=== PATIENT | male | born 1980 | race Caucasian/White ===

== ENCOUNTER 2017-12-15 12:12 | Emergency (ER) | payer SELFPAY ==
[~2017-12-15] VITALS: Ht 185.4 cm; Wt 120.2 kg
[2017-12-15] MEDS ORDERED: SILVER SULFADIAZINE 1% CREAM 25 GM TUBE TP ONE (12:31)
[2017-12-15] MEDS ORDERED: TDAP DIPH,PERTUSS,TET VAC/PF 0.5 ML DISP.SYRIN IM ONE ×2 (12:35→12:45)
[2017-12-15] MEDS ORDERED: MORPHINE SULFATE 4 MG/1 ML DISP.SYRIN ONE (12:44)
[2017-12-15] MEDS ORDERED: SILVER SULFADIAZINE 1% CREAM 50 GM TP ONE (12:45)
[2017-12-15] MEDS ORDERED: MORPHINE SULFATE 4 MG/1 ML DISP.SYRIN IM ONE (12:45)
--- NOTE | 2017-12-15 13:05 | NUR ---
Patient discharged to home in stable conditon. Written and verbal after care instructions given. Patient verbalizes understanding of instructions.
[2017-12-15 13:06] VITALS: BP 141/79
== END 2017-12-15 13:12 | disposition home or self-care (01) ==
LOC: ER 12:15
DX: T20.20XA Burn of second degree of head, face, and neck, unspecified site, initial encounter (principal); T20.17XA Burn of first degree of neck, initial encounter; F17.200 Nicotine dependence, unspecified, uncomplicated; W39.XXXA Discharge of firework, initial encounter; Y93.89 Activity, other specified; Y92.89 Other specified places as the place of occurrence of the external cause; Y99.8 Other external cause status
CPT/HCPCS: 16020; 90471; 90715; 96372; 99284; J2270; A4663